=== PATIENT | male | born 1955 | race Caucasian/White ===

== ENCOUNTER 2019-02-24 05:46 | Emergency (ER) | payer OTHER ==
--- NOTE | 2019-02-24 06:07 | EDM.PDOC ---
ED HPI GENERAL MEDICAL PROBLEM - General Stated Complaint: HEAD INJURY Time Seen by Provider: 02/24/19 05:55 Source of Information: Reports: Patient History Limitations: Reports: No Limitations - History of Present Illness INITIAL COMMENTS - FREE TEXT/NARRATIVE: History of present illness: []Patient was working at [employer] and was climbing up a three-step ladder and missed the second step, falling backwards and hitting the back of his head on the floor suffering a scalp laceration 05:15 this morning. He denies any loss of consciousness, numbness or tingling, vomiting, nausea or blurry vision. Patient denies any alcohol, blood thinners or aspirin use. His last tetanus shot was 6-7 years ago. Review of systems: As per history of present illness and below otherwise all systems reviewed and negative. Past medical history: As per history of present illness and as reviewed below otherwise noncontributory. Surgical history: As per history of present illness and as reviewed below otherwise noncontributory. Social history: No reported history of drug or alcohol abuse. Family history: As per history of present illness and as reviewed below otherwise noncontributory. Physical exam: General: Well developed, well nourished in NAD HEENT: 4 cm posterior scalp laceration there is no bony crepitance, normocephalic, pupils reactive, negative for conjunctival pallor or scleral icterus, mucous membranes moist, throat clear, neck supple, no midline vertebral tenderness to palpation or step-offs, muscular tenderness bilaterally , trachea midline. TMs show no hemotympanum Lungs: Clear to auscultation, breath sounds equal bilaterally, chest nontender. Heart: S1S2, regular, negative for clicks, rubs, or JVD. Abdomen: NABS, Soft, nondistended, nontender. Negative for masses or hepatosplenomegaly. Negative for costovertebral tenderness. Pelvis: Stable nontender. Genitourinary: Deferred. Rectal: Deferred. Extremities: Atraumatic, negative for cords or calf pain. Neurovascular unremarkable. Neuro: Awake, alert, oriented. Cranial nerves II through XII unremarkable. Cerebellum unremarkable. Motor and sensory unremarkable throughout. Exam nonfocal. Skin:warm and dry Diagnostics: None Therapeutics: Laceration stapled, tetanus status updated ED Course: Stable Impression: Scalp laceration Prescriptions flexeril Plan: Rosalia out in 7-10 days, return to ER immediately if any worsening symptoms including vomiting, worsening headache, change in vision or any other concerns. Follow up with PMD as needed. Use ice and/or Tylenol for pain All for pain Definitive disposition and diagnosis as appropriate pending reevaluation and review of above. Lower Back Pain Score (Numeric/FACES): 6 - Related Data Allergies Allergy/AdvReac Type Severity Reaction Status Date / Time Penicillins Allergy Rash Verified 02/24/19 06:03 Home Meds: Home Meds Bp Med 1 dose PO ASDIRECTED 02/24/19 [History] Cyclobenzaprine [Flexeril] 10 mg PO BID PRN #12 tab 02/24/19 [Rx] ED ROS GENERAL - Review of Systems Review Of Systems: See Below ED EXAM, HEAD INJURY - Physical Exam Exam: See Below ED LACERATION/WOUND & MATTHEW PROC - Laceration/Wound Repair scalp Appearance: Subcutaneous, Mildly Contaminated Distal NVT: Neuro & Vascular Intact Anesthetic Type: Local Local Anesthesia - Lidocaine (Xylocaine): 1% with EPI Local Anesthetic Volume: 2cc Skin Prep: Chlorhexidine (Hibiciens) Exploration/Debridement/Repair: Wound Explored Closed with: Rosalia Drain Placement: No Sterile Dressing Applied: None Tetanus Status Addressed: Yes Complications: No Course - Vital Signs Last Recorded V/S: Last Vital Signs Temp 97.3 F 02/24/19 06:00 Pulse 80 02/24/19 06:00 Resp 16 02/24/19 06:00 BP 160/102 H 02/24/19 06:00 Pulse Ox 97 02/24/19 06:00 - Orders/Labs/Meds Orders: Active Orders 24 hr Category Date Time Status Vaccines to be Administered [RC] PER UNIT ROUTINE Care 02/24/19 06:32 Active Meds: Medications Discontinued Medications Generic Name Dose Route Start Last Admin Trade Name Freq PRN Reason Stop Dose Admin Diphtheria/Tetanus/Acell Pertussis 0.5 ml 02/24/19 06:32 02/24/19 06:48 Adacel IM 02/24/19 06:33 0.5 ml .ONCE ONE Administration Lidocaine/Epinephrine 20 ml 02/24/19 06:32 02/24/19 06:48 Xylocaine 1% With Epinephrine 1:100,000 INJECT 02/24/19 06:33 20 ml ONETIME ONE Administration Departure - Departure Time of Disposition: 06:54 Disposition: Home, Self-Care 01 Condition: Good Clinical Impression: Scalp laceration Qualifiers: Encounter type: initial encounter Qualified Code(s): S01.01XA - Laceration without foreign body of scalp, initial encounter - Discharge Information *PRESCRIPTION DRUG MONITORING PROGRAM REVIEWED*: No *COPY OF PRESCRIPTION DRUG MONITORING REPORT IN PATIENT KAREN: No Prescriptions: Cyclobenzaprine [Flexeril] 10 mg PO BID PRN #12 tab PRN Reason: Pain Instructions: Head Injury, Adult, [id number], Laceration Care, Adult, Easy-to -Read Referrals: PCP,None [Primary Care Provider] - Forms: ED Department Discharge Additional Instructions: The following information is given to patients seen in the emergency department who are being discharged to home. This information is to outline your options for follow-up care. We provide all patients seen in our emergency department with a follow-up referral. The need for follow-up, as well as the timing and circumstances, are variable depending upon the specifics of your emergency department visit. If you don't have a primary care physician on staff, we will provide you with a referral. We always advise you to contact your personal physician following an emergency department visit to inform them of the circumstance of the visit and for follow-up with them and/or the need for any referrals to a consulting specialist. The emergency department will also refer you to a specialist when appropriate. This referral assures that you have the opportunity for follow-up care with a specialist. All of these measure are taken in an effort to provide you with optimal care, which includes your follow-up. Under all circumstances we always encourage you to contact your private physician who remains a resource for coordinating your care. When calling for follow-up care, please make the office aware that this follow-up is from your recent emergency room visit. If for any reason you are refused follow-up, please contact the [facility] at and asked to speak to the emergency department charge nurse. rosalia out in 7-10 days, follow-up with PMD, return to ER immediately for any worsening symptoms including increasing headache, change in vision or vomiting or any other concerns. [facility] [address] [place] [id number] - My Orders Last 24 Hours: My Active Orders 02/24/19 06:32 Vaccines to be Administered [RC] PER UNIT ROUTINE - Assessment/Plan Last 24 Hours: My Active Orders 02/24/19 06:32 Vaccines to be Administered [RC] PER UNIT ROUTINE
[2019-02-24] MEDS ORDERED: Diphtheria,Pertussis(Acell),Tetanus Vaccine 0.5 ML Syringe IM ONE (06:32)
[2019-02-24] MEDS ORDERED: Lidocaine 1% with EPINEPHrine 1:100,000 20 ML MDV INJECT ONE (06:32)
== END 2019-02-24 07:02 | disposition home or self-care (01) ==
LOC: MW.ED 05:46
DX: S01.01XA Laceration without foreign body of scalp, initial encounter (principal); Z23 Encounter for immunization; Z88.0 Allergy status to penicillin; W11.XXXA Fall on and from ladder, initial encounter; Y92.89 Other specified places as the place of occurrence of the external cause; Y93.39 Activity, other involving climbing, rappelling and jumping off; Y99.0 Civilian activity done for income or pay
CPT/HCPCS: 12002; 90471; 90715; 99282

== ENCOUNTER 2019-03-06 09:01 | Emergency (ER) | payer OTHER | END 2019-03-06 09:17 | disposition home or self-care (01) | LOC: MW.ED 09:01 | DX: Z53.21 Procedure and treatment not carried out due to patient leaving prior to being seen by health care provider (principal) ==